=== PATIENT | male | born 2005 | race Caucasian/White ===

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

== ENCOUNTER 2023-01-26 12:41 | Emergency (ER) | payer OTHER ==
[~2023-01-26] VITALS: Wt 44.5 kg
[2023-01-26] MEDS ORDERED: FLUOXETINE HYDR20 M1 PO (13:08)
[2023-01-26] MEDS ORDERED: VIBRAMYCIN100 MG PO (16:14)
== END 2023-01-26 16:25 | disposition home or self-care (01) ==
LOC: ED 12:41
DX: S80.862A Insect bite (nonvenomous), left lower leg, initial encounter (principal); J45.909 Unspecified asthma, uncomplicated; Z88.0 Allergy status to penicillin; Z98.890 Other specified postprocedural states; W57.XXXA Bitten or stung by nonvenomous insect and other nonvenomous arthropods, initial encounter; Y93.89 Activity, other specified; Y92.89 Other specified places as the place of occurrence of the external cause; Y99.8 Other external cause status

== ENCOUNTER 2023-12-27 23:02 | Emergency (ER) | payer OTHER ==
[~2023-12-27] VITALS: Ht 152.4 cm; Wt 45.4 kg
[~2023-12-27 23:02] MED LIST changes: +FLUOXETINE HYDR20 M1 PO; +VIBRAMYCIN100 MG PO
[2023-12-27] MEDS ORDERED: LORazepam 1 MG TAB PO ONE (23:15)
== END 2023-12-28 00:58 | disposition home or self-care (01) ==
LOC: ED 23:02
DX: R07.89 Other chest pain (principal); T43.225A Adverse effect of selective serotonin reuptake inhibitors, initial encounter; F41.9 Anxiety disorder, unspecified; R11.2 Nausea with vomiting, unspecified; Z88.0 Allergy status to penicillin; Z79.899 Other long term (current) drug therapy; Z98.890 Other specified postprocedural states; Y92.89 Other specified places as the place of occurrence of the external cause

== ENCOUNTER 2024-12-09 19:25 | Emergency (ER) | payer OTHER ==
[~2024-12-09] VITALS: Ht 152.4 cm; Wt 49.9 kg
[2024-12-09 20:19] LABS: BILIRUBIN Negative (Negative); BLOOD Negative (Negative); CLARITY Clear (Clear); COLOR Yellow (Yellow); GLUCOSE Negative (Negative); KETONE Trace (Negative); LEUKO ESTERASE Negative (Negative); NITRITE Negative (Negative); SPECIFIC GRAVITY 1.025 (1.001-1.030)
[2024-12-09 20:59] LABS: WBC 0-2 wbc/hpf (0-5)
[2024-12-09] MEDS ORDERED: Ketorolac Tromethamine 30 MG/ML VIAL IM ONE (21:00)
[2024-12-09] MEDS ORDERED: CEFTRIAXONE 250 MG IM ONE (21:00)
[2024-12-09] MEDS ORDERED: NAPROXEN250 MG PO (21:04)
[2024-12-09] MEDS ORDERED: VIBRAMYCIN100 MG PO (21:04)
== END 2024-12-09 21:30 | disposition home or self-care (01) ==
LOC: ED 19:25
PROVIDERS: Internal Medicine
DX: N45.3 Epididymo-orchitis (principal); Z98.890 Other specified postprocedural states; Z88.0 Allergy status to penicillin; Z79.899 Other long term (current) drug therapy

== ENCOUNTER 2025-07-01 03:42 | Emergency (ER) | payer OTHER ==
[~2025-07-01] VITALS: Ht 154.9 cm; Wt 54.4 kg
[~2025-07-01 03:42] MED LIST changes: +NAPROXEN250 MG PO
[2025-07-01] MEDS ORDERED: MELOXICAM15 MG PO (05:01)
== END 2025-07-01 05:04 | disposition home or self-care (01) ==
LOC: ED 03:42
DX: S60.222A Contusion of left hand, initial encounter (principal); Z88.0 Allergy status to penicillin; Z79.899 Other long term (current) drug therapy; Z98.890 Other specified postprocedural states; X50.1XXA Overexertion from prolonged static or awkward postures, initial encounter; Y93.89 Activity, other specified; Y92.89 Other specified places as the place of occurrence of the external cause; Y99.8 Other external cause status